=== PATIENT | male | born 1960 | race Caucasian/White ===

== ENCOUNTER 2016-08-21 11:37 | Emergency (ER) | payer SELFPAY ==
[~2016-08-21] VITALS: Ht 193 cm; Wt 121.5 kg
[2016-08-21 11:38] VITALS: BP 170/121; PULSE 106; RESP 21; TEMP 98.2; O2SAT 98
[2016-08-21] MEDS ORDERED: METOCLOPRAMIDE HCL 10 MG/2 ML VIAL IM ONE (12:00)
[2016-08-21] MEDS ORDERED: MORPHINE SULFATE 4 MG/ML INJ IM ONE ×2 (12:00→13:15)
[2016-08-21] MEDS ORDERED: diphenhydrAMINE HCL 50 MG/ML VIAL IM ONE (12:00)
[2016-08-21] MEDS ORDERED: ZOFR4TAB3 SL (12:05)
[2016-08-21] MEDS ORDERED: TAMS5CAP PO (12:05)
[2016-08-21 12:33] LABS: BLOOD, URINE LARGE (NEG); COMMENT (UR) CULT NOT INDICATED; CULTURE IF INDICATED CULT NOT INDICATED; GLUCOSE,URINE NEG (NEG); KETONE, URINE NEG (NEG); MUCUS URINE FEW /lpf (OCC); NITRITE,URINE NEG (NEG); PH, URINE 5.5 (5.0-8.5); URINE COLOR YELLOW (YELLW/STRAW)
[2016-08-21] MEDS ORDERED: ONDANSETRON ODT 4 MG TAB PO ONE (12:45)
[2016-08-21] MEDS ORDERED: oxyCODONE/ACETAMINOPHEN 5 MG/325 MG TAB PO ONE (13:15)
[2016-08-21] MEDS ORDERED: PERC5TAB12 PO ×2 (13:41→13:43)
[2016-08-21] MEDS ORDERED: ZOFR8TAB4 SL ×2 (13:41→13:43)
--- NOTE | 2016-08-21 13:42 | PD ---
HPI Chief Complaint: Flank/Kidney Pain Time Seen by Provider: 11:52 Travel History International Travel<30 days: No Contact w/Intl Traveler<30days: No Traveled to known affect area: No History of Present Illness HPI 55-year-old male with history of ureterolithiasis here with complaint of right sided flank pain. Starting this morning patient has noticed pain in the right flank that radiates slightly into the abdomen. Associated darker urine and hematuria. History of ureterolithiasis and this feels similar. Pain is sharp, moderate to severe with associated nausea and vomiting. He has a hard time finding a comfortable position. He has always passed his stones and apparently in the past without stent or lithotripsy. PFSH Past Medical History Kidney Stones: Yes Tetanus Vaccination: < 5 Years Influenza Vaccination: Yes Past Surgical History Abdominal Aneurysm Repair: Yes (gallbladder appy) Abdominal Surgery: Yes Other Surgery: Yes (shoulder,neck,knee feet , hand) Social History Alcohol Use: No Tobacco Use: Yes Substance Use: No (hx when teenager) Allergies-Medications (Allergen,Severity, Reaction): Coded Allergies: Demerol (Verified Allergy, Unknown, 08/21/16) nausea/vomiting Toradol (Verified Allergy, Unknown, 08/21/16) hives Reported Meds & Prescriptions Reported Meds & Active Scripts Active Reported Zofran Odt (Ondansetron Odt) 4 Mg Tab 4 Mg SL Q8HR PRN Flomax (Tamsulosin HCl) 0.4 Mg Cap 0.4 Mg PO DAILY Review of Systems Except as stated in HPI: all other systems reviewed are Neg Physical Exam Narrative GENERAL: Uncomfortable appearing male SKIN: Focused skin assessment warm/dry. HEAD: Normocephalic. EYES: No scleral icterus. No injection or drainage. ENT: Mucous membranes pink and moist. NECK: Supple CARDIOVASCULAR: Regular rate and rhythm. RESPIRATORY: No accessory muscle use. GASTROINTESTINAL: Abdomen soft, non-tender, nondistended. Right sided CVA tenderness. Obese MUSCULOSKELETAL: No obvious deformities. No edema. NEUROLOGICAL: Awake and alert. Normal speech. PSYCHIATRIC: Appropriate mood and affect; insight and judgment normal. Data Data Last Documented VS Vital Signs Date Time Temp Pulse Resp B/P Pulse Ox O2 Delivery O2 Flow Rate FiO2 08/21/16 11:38 98.2 106 21 170/121 98 Orders Urinalysis - C+S If Indicated (08/21/16 11:52) Morphine Inj (Morphine Inj) (08/21/16 12:00) Diphenhydramine Inj (Benadryl Inj) (08/21/16 12:00) Metoclopramide Inj (Reglan Inj) (08/21/16 12:00) Ondansetron Odt (Zofran Odt) (08/21/16 12:45) Morphine Inj (Morphine Inj) (08/21/16 13:15) Oxycodone-Acetamin 5-325 Mg (Percocet (08/21/16 13:15) Labs Laboratory Tests Test 08/21/16 12:08 Urine Color YELLOW Urine Turbidity CLEAR Urine pH 5.5 Urine Specific [place] 1.018 Urine Protein NEG mg/dL Urine Glucose (UA) NEG mg/dL Urine Ketones NEG mg/dL Urine Occult Blood LARGE Urine Nitrite NEG Urine Bilirubin NEG Urine Urobilinogen LESS THAN 2.0 MG/DL Urine Leukocyte Esterase NEG Urine RBC /hpf Urine WBC 2 /hpf Urine Mucus FEW /lpf Microscopic Urinalysis Comment CULT NOT INDICATED MDM Medical Decision Making Medical Screen Exam Complete: Yes Emergency Medical Condition: Yes Medical Record Reviewed: Yes Differential Diagnosis 55-year-old male here with history of ureterolithiasis here with right flank pain radiating slightly into the abdomen with hematuria times one day. Differential includes ureterolithiasis, UTI/pyelonephritis, and less likely musculoskeletal, hepatobiliary pathology or appendicitis. Narrative Course Urinalysis shows blood. Patient was given morphine, Benadryl, Zofran, Percocet with improvement of symptoms and will be discharged home. Diagnosis Primary Impression: Renal colic Referrals: Urologist call for appointment Additional Instructions: Pain and nausea medications as needed. Med/Other Pt SpecificInfo: Prescription(s) given Scripts Ondansetron Odt (Zofran Odt)8 Mg Tab8 Mg SL Q8H PRN (NAUSEA OR VOMITING) #10 TAB Ref 0 Prov:Lynsey Piedra MD 08/21/16 Oxycodone-Acetaminophen (Percocet)5-325 mg Tab1-2 Tab PO Q4H PRN (PAIN) #20 TAB Ref 0 Prov:Lynsey Piedra MD 08/21/16 Disposition: 01 DISCHARGE HOME Condition: Stable Lynsey Piedra MD Aug 21, 2016 13:42
== END 2016-08-21 13:52 | disposition home or self-care (01) ==
LOC: NEPD 11:37
DX: N23 Unspecified renal colic (principal); Z87.442 Personal history of urinary calculi
CPT/HCPCS: 81001; 96372; 99284; J1200; J2270